=== PATIENT | female | born 1960 | race Caucasian/White ===

== ENCOUNTER → 2021-04-29 | Outpatient (CLI) | payer OTHER ==
[~2021-04-29] MED LIST: ACHYD1T PO; CIPR-226 PO; DULO30CA49 PO; Docusate Sodium PO; ESTR2TAB4 PO; Ibuprofen PO; LISI20TA PO; METR500T PO; RT-ALBUTEROL SULF 2.5 MG/3 ML PRE-MIX VIAL INH ONE; VNL37.5T PO
== END ==
LOC: RT 10:45
PROVIDERS: ATTEND Family Medicine
DX: Z02.71 Encounter for disability determination (principal)
CPT/HCPCS: 94060